=== PATIENT | female | born 1990 | race Caucasian/White ===

== ENCOUNTER → 2016-11-11 | Outpatient (CLI) | payer OTHER ==
[~2016-11-11] MED LIST: ACET50TA PO; COLA100C5 PO; IBUP60TA PO; MOM30SS PO; VALT500T PO
[2016-11-11 13:38] LABS: BASO % 0.3 % (0.0-1.0); EOS # 0.1 10^3/uL (0.0-0.50); IMMATURE GRANULOCYTE % 0.3 % (0-0); LYMPH # 1.4 10^3/uL (1.5-6.5); LYMPH % 23.8 % (24.0-44.0); MEAN CORPUSCULAR HEMOGLOBIN 30.3 pg (27.0-33.0); MEAN CORPUSCULAR HGB CONC 34.2 g/dl (32.0-36.5); MEAN CORPUSCULAR VOLUME 88.6 fl (80.0-96.0); MONO # 0.3 10^3/uL (0.0-0.8); MONO % 5.3 % (0.0-5.0); NEUTROPHILS # 4.1 10^3/uL (1.8-7.7); NEUTROPHILS % 68.3 % (36.0-66.0); PLATELET COUNT, AUTOMATED 275 10^3/uL (150-450); WHITE BLOOD COUNT 6.1 10^3/uL (4.0-10.0)
[2016-11-11 13:41] LABS: ADD MANUAL DIFFER NO; DIFF SLIDE NUMBER 259
[2016-11-12 11:21] LABS: HBsAg Prenatal NEGATIVE (NEGATIVE)
== END ==
LOC: M LAB 13:01
PROVIDERS: ATTEND Obstetrics & Gynecology
DX: Z34.81 Encounter for supervision of other normal pregnancy, first trimester (principal); Z3A.00 Weeks of gestation of pregnancy not specified

== ENCOUNTER → 2017-01-14 | Outpatient (CLI) | payer OTHER ==
--- NOTE | 2017-01-15 08:17 | REP ---
COMPLETE OBSTETRICAL ULTRASOUND: CLINICAL HISTORY: Anatomical evaluation. FINDINGS: Ultrasound examination demonstrates single live intrauterine in breech presentation. motion was identified by technologist. The placenta is noted anteriorly and grade 1 without evidence for placenta previa or abruption. Amniotic fluid volume is normal. Cervix measures 3.4 cm in length and appears closed. Uterine synechia identified. Gestational age by LMP 18 weeks 5 days with estimated date of delivery 06/12/2017. Gestational age by current measurements 18 weeks 2 days with estimated date of delivery 06/15/2017. heart rate 160 beats per minute. BPD 4.0 cm = 18 weeks 2 days HC 15.0 cm = 18 weeks 0 days AC 12.7 cm = 18 weeks 2 days FL 2.6 cm = 18 weeks 0 days HL 2.8 cm = 19 weeks 0 days HC/AC ratio 1.18 Estimated weight 226 grams (27th percentile). Anatomical assessment demonstrates normal cranium, choroid plexus, cavum, cerebellum/posterior fossa, facial features, lungs, four chamber heart/ventricular outflow tract, diaphragm, stomach, cord insertion/three vessel cord, kidneys/bladder and extremities. Suboptimal evaluation of the spine due to positioning. IMPRESSION: 1. Single liver intrauterine in breech presentation demonstrating appropriate interval growth. 2. Limited evaluation of the spine due to positioning. The remainder of the anatomical assessment is normal. 3. Synechia noted along the anterior portion of the uterus. Signed by Garcia Verduzco MD 01/16/2017 07:58 A
== END ==
LOC: M RAD 10:15
PROVIDERS: ATTEND Advanced Practice Midwife
DX: Z34.80 Encounter for supervision of other normal pregnancy, unspecified trimester (principal)

== ENCOUNTER → 2017-03-17 | Outpatient (CLI) | payer OTHER ==
[2017-03-17 12:14] LABS: HEMATOCRIT 35.1 % (36.0-47.0); HEMOGLOBIN 11.7 g/dl (12.0-16.0); MEAN CORPUSCULAR HEMOGLOBIN 29.8 pg (27.0-33.0); MEAN CORPUSCULAR HGB CONC 33.3 g/dl (32.0-36.5); MEAN CORPUSCULAR VOLUME 89.5 fl (80.0-96.0); PLATELET COUNT, AUTOMATED 319 10^3/uL (150-450); RED BLOOD COUNT 3.92 10^6/uL (4.00-5.40); RED CELL DISTRIBUTION WIDTH 12.3 % (11.5-14.5); WHITE BLOOD COUNT 9.5 10^3/uL (4.0-10.0)
[2017-03-17 12:52] LABS: GLUCOSE CHALLENGE TEST 1 HOUR 65 MG/DL (LESS THAN 140)
== END ==
LOC: M RAD 09:47
DX: Z36.9 Encounter for antenatal screening, unspecified (principal); Z3A.27 27 weeks gestation of pregnancy
CPT/HCPCS: 76816

== ENCOUNTER → 2017-05-12 | Outpatient (REF) | payer OTHER | LOC: M LAB REF 12:57 | DX: Z34.83 Encounter for supervision of other normal pregnancy, third trimester (principal); Z3A.00 Weeks of gestation of pregnancy not specified ==

== ENCOUNTER → 2017-07-15 | Outpatient (REF) | payer OTHER | LOC: M LAB REF 10:31 | DX: N30.01 Acute cystitis with hematuria (principal) ==

== ENCOUNTER 2018-01-01 20:45 | Emergency (ER) | payer OTHER ==
[2018-01-01] MEDS: TETRACAINE 0.5% OPHTH SOLN 4ML OS (21:09)
[2018-01-01] MEDS: FLUORESCEIN OPHTH 1 MG STRIP OS (21:09)
== END 2018-01-01 21:24 | disposition home or self-care (01) ==
LOC: M ED 20:45
DX: S05.02XA Injury of conjunctiva and corneal abrasion without foreign body, left eye, initial encounter (principal); Z97.3 Presence of spectacles and contact lenses; X58.XXXA Exposure to other specified factors, initial encounter; Y92.89 Other specified places as the place of occurrence of the external cause; Z79.899 Other long term (current) drug therapy
CPT/HCPCS: 99283

== ENCOUNTER → 2019-10-26 | Outpatient (CLI) | payer OTHER ==
[~2019-10-26] MED LIST changes: -ACET50TA PO; +IBUP-1114 PO; +IBUP600T42 PO; -IBUP60TA PO; +MAPA500T2 PO; +OFLO3OPSO OS; +PRENTAB9 PO
[2019-10-26 17:09] LABS: BASO % 0.4 % (0.0-1.0); EOS # 0.1 10^3/uL (0.0-0.5); EOS % 0.9 % (0.0-3.0); HEMATOCRIT 32.8 % (36.0-47.0); HEMOGLOBIN 11.3 g/dl (12.0-15.5); LYMPH # 1.4 10^3/uL (1.5-5.0); LYMPH % 20.1 % (24.0-44.0); MEAN CORPUSCULAR HEMOGLOBIN 30.6 pg (27.0-33.0); MEAN CORPUSCULAR HGB CONC 34.5 g/dl (32.0-36.5); MEAN CORPUSCULAR VOLUME 88.9 fl (80.0-96.0); MONO # 0.3 10^3/uL (0.0-0.8); MONO % 4.3 % (0.0-5.0); NEUTROPHILS % 73.9 % (36.0-66.0); PLATELET COUNT, AUTOMATED 268 10^3/uL (150-450); RED BLOOD COUNT 3.69 10^6/uL (4.00-5.40); WHITE BLOOD COUNT 6.7 10^3/uL (4.0-10.0)
[2019-10-26 18:14] LABS: APPEARANCE, URINE CLOUDY (CLEAR); BACTERIA, URINE AUTO 1+ (NEGATIVE); BILIRUBIN, URINE AUTO NEGATIVE (NEGATIVE); BLOOD, URINE BLOOD NEGATIVE (NEGATIVE); COLOR, URINE YELLOW (YELLOW); GLUCOSE, URINE (UA) AUTO NEGATIVE (NEGATIVE); KETONE, URINE AUTO NEGATIVE (NEGATIVE); LEUKOCYTE ESTERASE, URINE AUTO TRACE (NEGATIVE); MUCUS, URINE SMALL (NEGATIVE); NITRITE, URINE AUTO NEGATIVE (NEGATIVE); PROTEIN, URINE AUTO NEGATIVE (NEGATIVE); RBC, URINE AUTO 1 /HPF (0-3); SPECIFIC GRAVITY URINE AUTO 1.021 (1.002-1.035); SQUAMOUS EPITHELIAL CELL UR AU 14 /HPF (0-6); UROBILINOGEN, URINE AUTO 0.2 mg/dL (0.0-2.0); WBC, URINE AUTO 4 /HPF (0-3)
[2019-10-26 18:29] LABS: HEPATITIS C VIRUS ABY INDEX 0.2 INDEX (<0.8); HIV 1&2 SCREEN CENTAUR NEGATIVE (NEGATIVE)
[2019-10-26 19:12] LABS: CHLAMYDIA DNA AMPLIFICATION NEGATIVE (NEGATIVE); GC DNA AMPLIFICATION NEGATIVE (NEGATIVE)
== END ==
LOC: M PLALAB 13:16
PROVIDERS: ATTEND Obstetrics & Gynecology
DX: Z36.89 Encounter for other specified antenatal screening (principal)

== ENCOUNTER → 2019-12-02 | Outpatient (CLI) | payer OTHER ==
--- NOTE | 2019-12-02 16:08 | REP ---
INDICATION: ANATOMY COMPARISON: None. TECHNIQUE: Transabdominal obstetrical ultrasound with color Doppler evaluation. FINDINGS: Examination demonstrates a single live intrauterine in variable presentation. motion is identified by technologist. Placenta is noted posterior and grade 1 without evidence for placenta previa or abruption. Uterine synechia cannot be excluded. Amniotic fluid volume is normal. Cervix measures 3.7 cm in length and appears closed.. Gestational age by LMP 19 weeks 0 days with JOHNATHAN 04/27/2020. Gestational age by current measurements 18 weeks 6 days with JOHNATHAN 04/28/2020. FHR equals 161 beats per minute. BPD: 4.1 cm 18 weeks 3 days HC: 15.4 cm 18 weeks 2 days AC: 14.5 cm 19 weeks 6 days FL: 2.9 cm 18 weeks 6 days HL: 2.7 cm 18 weeks 4 days HC/AC: 1.06 Estimated weight 281 grams (60thpercentile). Anatomical assessment demonstrates normal structures including cranium, cavum, cerebellum/posterior fossa, facial features, lungs, ventricular outflow tracts, diaphragm, stomach, cord insertion, kidneys/bladder, spine, and extremities. IMPRESSION: 1. Echogenic focus in the left cardiac ventricle suggests prominent chordae tendineae. 2. Small right choroid plexus cyst 2 mm diameter. 3. Cannot exclude uterine synechiae. 4. Live intrauterine in variable presentation demonstrating appropriate growth. <Electronically signed by Garcia Verduzco > 12/02/19 [id number]
== END ==
LOC: M WHC 13:36
PROVIDERS: ATTEND Advanced Practice Midwife
DX: Z34.82 Encounter for supervision of other normal pregnancy, second trimester (principal)

== ENCOUNTER → 2020-01-02 | Outpatient (REF) | payer OTHER | LOC: M PLALAB 10:24 | PROVIDERS: ATTEND Obstetrics & Gynecology | DX: Z34.02 Encounter for supervision of normal first pregnancy, second trimester (principal); Z53.9 Procedure and treatment not carried out, unspecified reason; Z3A.00 Weeks of gestation of pregnancy not specified ==

== ENCOUNTER → 2020-01-31 | Outpatient (REF) | payer OTHER ==
[2020-01-31 15:52] LABS: HEMATOCRIT 30.6 % (36.0-47.0); HEMOGLOBIN 9.5 g/dl (12.0-15.5); MEAN CORPUSCULAR HEMOGLOBIN 28.2 pg (27.0-33.0); MEAN CORPUSCULAR VOLUME 90.8 fl (80.0-96.0); PLATELET COUNT, AUTOMATED 290 10^3/uL (150-450); RED BLOOD COUNT 3.37 10^6/uL (4.00-5.40); WHITE BLOOD COUNT 8.5 10^3/uL (4.0-10.0)
== END ==
LOC: M PLALAB 11:29
PROVIDERS: ATTEND Obstetrics & Gynecology
DX: Z34.82 Encounter for supervision of other normal pregnancy, second trimester (principal); Z3A.23 23 weeks gestation of pregnancy

== ENCOUNTER → 2020-02-16 | Outpatient (CLI) | payer OTHER ==
--- NOTE | 2020-02-16 09:54 | REP ---
INDICATION: F/U ANATOMY COMPARISON: 12/02/2019 TECHNIQUE: Transabdominal obstetrical ultrasound with color Doppler evaluation. FINDINGS: Examination demonstrates a single live intrauterine in cephalic presentation. motion is identified by technologist. Placenta is noted posterior and grade 2 without evidence for placenta previa or abruption. Amniotic fluid volume is normal. Cervix appears closed.. Gestational age by LMP 29 weeks 6 days with JOHNATHAN 04/27/2020. Gestational age by current measurements 29 weeks 4 days with JOHNATHAN 04/29/2020. FHR equals 139 beats per minute. Estimated weight 1513 grams (46thpercentile). JOSE MANUEL: 15.6 cm (9.0-23.4) Current examination demonstrates normal choroid plexus without evidence for cyst as well as echogenic focus within the left cardiac ventricle likely representing prominent chordae tendineae. Three-vessel cord identified and appears normal. Previously suggested uterine synechiae are not identified on current exam. IMPRESSION: 1. Single live intrauterine in cephalic presentation demonstrating appropriate estimated weight and growth. 2. Previously identified uterine synechia is not visualized on current examination. 3. No evidence for choroid plexus cyst on current examination. 4. Continued evidence for small echogenic focus in the left cardiac ventricle. <Electronically signed by Garcia Verduzco > 02/16/20 [id number]
== END ==
LOC: M WHC 08:35
PROVIDERS: ATTEND Obstetrics & Gynecology
DX: Z34.82 Encounter for supervision of other normal pregnancy, second trimester (principal); Z3A.23 23 weeks gestation of pregnancy

== ENCOUNTER 2020-03-01 18:26 | Emergency (ER) | payer OTHER ==
[~2020-03-01] VITALS: Ht 170.2 cm; Wt 74.9 kg
--- OUTSIDE RECORDS SUMMARY | 2020-03-01 18:32 | CCD ---
Author Author [facility] Organization [facility] Address Unknown Phone Unavailable Support Name Relationship Address Phone SIMONE KUMAR Next Of Kin [address] [place] [address] CHRISTINA'S Next Of Kin [address] [place] [address] [employer] SHOPS Next Of Kin [address] [place] [address] STEWARTS* Next Of Kin [address] [place] [address] ST[place]ARTS Next Of Kin [address] [place] [address] ST Next Of Kin Unknown Unavailable NORMA LOPEZ Next Of Kin [address] [place] [address] Re-disclosure Warning The records that you are about to access may contain information from federally-assisted alcohol or drug abuse programs. If such information is present, then the following federally mandated warning applies: This information has been disclosed to you from records protected by federal confidentiality rules (42 CFR part 2). The federal rules prohibit you from making any further disclosure of this information unless further disclosure is expressly permitted by the written consent of the person to whom it pertains or as otherwise permitted by 42 CFR part 2. A general authorization for the release of medical or other information is NOT sufficient for this purpose. The Federal rules restrict any use of the information to criminally investigate or prosecute any alcohol or drug abuse patient.The records that you are about to access may contain highly sensitive health information, the redisclosure of which is protected by Article 27-F of the [facility] Public Health law. If you continue you may have access to information: Regarding HIV / AIDS; Provided by facilities licensed or operated by the [facility] Office of Mental Health; or Provided by the [facility] Office for People With Developmental Disabilities. If such information is present, then the following [facility] mandated warning applies: This information has been disclosed to you from confidential records which are protected by state law. State law prohibits you from making any further disclosure of this information without the specific written consent of the person to whom it pertains, or as otherwise permitted by law. Any unauthorized further disclosure in violation of state law may result in a fine or fpc sentence or both. A general authorization for the release of medical or other information is NOT sufficient authorization for further disc losure. Family History Family Member Name Family Member Gender Family Member Status Date o f Status Description Data Source(s) Unknown Unknown Problem MED[facility] ([facility]) paternal grandmother and pt mother Encounters Encounter Providers Location Date Indications Data Source(s ) ( ESTOB) [facility] [address] [place] [address] 02/15/2020 12:00:00 AM EST eCW1 (formerly [facility]) ( ESTOB) [facility] Est [address] [place] [address] 01/02/2020 12:00:00 AM EST eCW1 (formerly [facility]) Insurance Providers Payer name Policy type / Coverage type Policy ID Covered libertarian ID Covered libertarian's relationship to mccall Policy Mccall Plan Information [employer] [facility] [facility] [id number] SP [id number] [facility] [facility] [id number] SP [id number] [employer] [facility] O [id number] S [id number] [facility] [id number] SP [id number] [facility] [id number] SP [id number] BCBS Federal Plan Commercial [id number] Self R [id number] MVP Commercial [id number] Self [id number] [facility] [id number] SP 80 [id number] [facility] [id number] SP [id number] [facility] [id number] SP 80 [id number] [facility] [id number] FA2 80 [id number] [facility] O [id number] S 80 [id number] [facility] [id number] SP 80 [id number] [facility] O [id number] S 80 [id number] [facility] [id number] FA2 80 [id number] [facility] [id number] SP [id number] MVP Commercial [id number] Family Dependent [id number] [facility] [id number] SP [id number] [facility] [id number] SP [id number] S [id number] Problems, Conditions, and Diagnoses Code Display Name Description Problem Type Effective Dates Data Source(s) O99.013 [id number] Anemia affecting in third trime ster Problem 02/15/2020 12:00:00 AM EST eCW1 ([facility]) Z34.80 care Supervision of other normal P roblem 12/01/2019 12:00:00 AM EDT eCW1 ([facility]) Social History Code Duration Value Status Description Data Source(s ) Smoking 02/13/2020 12:00:00 AM EST Never Smoker completed Never S moker eCW1 ([facility]) Smoking 01/02/2020 12:00:00 AM EST Never Smoker completed Never S moker eCW1 ([facility]) Vital Signs ID Date Data Source UNK Name Value Range Interpretation Code Description Data Source(s) Diastolic blood pressure 62 mm[Hg] 62 mm[Hg] eCW1 ([facility]) Systolic blood pressure 108 mm[Hg] 108 mm[Hg] e CW1 ([facility]) Body mass index (BMI) [Ratio] 25.529 kg/m2 25.5 29 kg/m2 [facility] ([facility]) Body height 67 [in_i] 67 [in_i] eCW1 ([facility]) Body weight 73.94 kg 73.94 kg [facility] ([facility]) Body weight 163 [lb_av] 163 [lb_av] W1 ([facility]) Diastolic blood pressure 64 mm[Hg] 64 mm[Hg] W1 ([facility]) Systolic blood pressure 104 mm[Hg] 104 mm[Hg] e CW1 ([facility]) Body mass index (BMI) [Ratio] 24.903 kg/m2 24.9 03 kg/m2 [facility] ([facility]) Body height 67 [in_i] 67 [in_i] eCW1 ([facility]) Body weight 159 [lb_av] 159 [lb_av] eCW1 ([facility])
--- OUTSIDE RECORDS SUMMARY | 2020-03-01 18:32 | CCD ---
Author Author [facility] Organization [facility] Address Unknown Phone Unavailable Care Team Providers Care Service Vehicle Operator Name Role Phone Martha Perez Unavailable PROBLEMS Type Condition ICD9-CM Code [id number] Code Onset Dates Condition S tatus SNOMED Code Notes Problem Supervision of other normal Z34.80 Ac tive [id number] Problem Anemia affecting in third trimester O99. 013 Active 80005410 ALLERGIES No Known Allergies ENCOUNTERS from 1992 to 2020-02-18 Encounter Location Date Provider Diagnosis [facility] [address] [place] [id number] Feb, Martha Perez Anemia affecting in third trimester O99.013 ; Other specified diseases and conditions complicating O99.891 ; Shortness of breath R06.02 and 29 weeks gestation of Z3A.29 IMMUNIZATIONS No Information SOCIAL HISTORY Tobacco Use: Social History Observation Description Date Details (start date - stop date) Never Smoker Sex Assigned At : Social History Observation Description Sex Assigned At Unknown Tobacco Use: Question Answer Notes Are you a: never smoker REASON FOR REFERRAL No Information VITAL SIGNS Weight 163 lbs Feb, Weight-kg 73.94 kg Feb, Height 67 in Feb, BMI 25.529 kg/m2 Feb, Blood pressure systolic 108 mm Hg Feb, Blood pressure diastolic 62 mm Hg Feb, MEDICATIONS Medication SIG (Take, Route, Frequency, Duration) Notes Start Da te End Date Status Flintstones Complete 18 MG 1 tablet Orally Once a day Active PROCEDURES No Information RESULTS No Results REASON FOR VISIT 4 WK PN PUSHED BACK IN ORDER TO SEE EUSEBIO MEDICAL (GENERAL) HISTORY Type Description Date Hospitalization History childbirth Goals Section No Information Health Concerns No Information MEDICAL EQUIPMENT No Information MENTAL STATUS No Information FUNCTIONAL STATUS No Information ASSESSMENTS Encounter Date Diagnosis Assessment Notes Treatment Notes Treatm ent Clinical Notes Feb, Anemia affecting in third trimester (I CD-10 - O99.013) Feb, Other specified diseases and conditions complicating (ICD-10 - O99.891) Feb, Shortness of breath (ICD-10 - R06.02) Feb, 29 weeks gestation of (ICD-10 - Z3A.29 ) PLAN OF TREATMENT Next Appt Details 2 Weeks Reason: Provider Name:Martha Maria Isabel Chris, 2020-02-29 11:40:00 AM, [address] [place], [address], Follow Up:2 WeeksPrenatal Insurance Providers Payer Name Payer Address Payer Phone Insured Name Patient Relati onship to Insured Coverage Start Date Coverage End Date [facility] [address] [address] [facility] [phone] KANNAN KUMAR self
--- OUTSIDE RECORDS SUMMARY | 2020-03-01 18:32 | CCD ---
Author Author [facility] Organization [facility] Address Unknown Phone Unavailable Care Team Providers Care Rug Frame Mounter Name Role Phone Gloria Ureña Unavailable PROBLEMS Type Condition ICD9-CM Code TNI19-SN Code Onset Dates Condition S tatus SNOMED Code Notes Problem Supervision of other normal Z34.80 Ac tive [id number] ALLERGIES No Known Allergies ENCOUNTERS from 1992 to 2020-01-17 Encounter Location Date Provider Diagnosis [facility] [address] [place] [id number] Dec, Gloria Ureña Encounter for pregna ncy related examination in second trimester Z34.82 and 23 weeks gestation of Z3A.23 IMMUNIZATIONS No Information SOCIAL HISTORY Tobacco Use: Social History Observation Description Date Details (start date - stop date) Never Smoker Sex Assigned At : Social History Observation Description Sex Assigned At Unknown Tobacco Use: Question Answer Notes Are you a: never smoker REASON FOR REFERRAL No Information VITAL SIGNS Weight 159 lbs Dec, Height 67 in Dec, BMI 24.903 kg/m2 Dec, Blood pressure systolic 104 mm Hg Dec, Blood pressure diastolic 64 mm Hg Dec, MEDICATIONS Medication SIG (Take, Route, Frequency, Duration) Notes Start Da te End Date Status Flintstones Complete 18 MG 1 tablet Orally Once a day Active PROCEDURES No Information RESULTS No Results REASON FOR VISIT 4 WK PN 12/19/19 LMOM OF APPT CHG LS MEDICAL (GENERAL) HISTORY Type Description Date Hospitalization History childbirth Goals Section No Information Health Concerns No Information MEDICAL EQUIPMENT No Information MENTAL STATUS No Information FUNCTIONAL STATUS No Information ASSESSMENTS Encounter Date Diagnosis Assessment Notes Treatment Notes Treatm ent Clinical Notes Dec, Encounter for rela tristan examination in second trimester (ICD-10 - Z34.82) Dec, 23 weeks gestation of (ICD-10 - Z3A.23 ) PLAN OF TREATMENT Treatment Notes Test Name Order Date CBC - Complete Blood Count 2020-01-17 AB SCREEN (INDIRECT VIVI)GEL Antibody Screen 2020-01 Type and Screen (D Rh Antibody Screen) 2020-01-17 Glucose Challenge Test 1 Hour 2020-01-17 WWBC OBS FOLLOW UP OR REPEAT 2020-01-17 Next Appt Details 4 Weeks Reason:PN Provider Name:Martha Perez, 2020-02-15 08:00:00 AM, [address] [place], [address], Follow Up:4 WeeksPN Insurance Providers Payer Name Payer Address Payer Phone Insured Name Patient Relati onship to Insured Coverage Start Date Coverage End Date [facility] [address] [address] [facility] [phone] KANNAN KUMAR self
--- OUTSIDE RECORDS SUMMARY | 2020-03-01 19:42 | CCD ---
Author Author [facility] Organization [facility] Address Unknown Phone Unavailable Support Name Relationship Address Phone SIMONE KUMAR Next Of Kin [address] [place] [address] CHRISTINA'S Next Of Kin [address] [place] [address] [employer]ART[employer] SHOPS Next Of Kin [address] [place] [address] STEWARTS* Next Of Kin [address] [place] [address] [place]ARTS Next Of Kin [address] [place] [address] ST Next Of Kin Unknown Unavailable NORMA LOPEZ Next Of Kin [address] [place] [address] Re-disclosure Warning The records that you are [...] is protected by Article 27-F of the [facility] Public Health law. If you continue you may have access to information: Regarding HIV / AIDS; Provided by facilities licensed or operated by the [facility] Office of Mental Health; or Provided by the [facility] Office for People With Developmental Disabilities. If such information is present, then the following [facility] mandated warning applies: This information has [...] law may result in a fine or fci sentence or both. A general authorization for [...] Date Indications Data Source(s ) ( ESTOB) [facility] [address] [place] [address] 02/15/2020 12:00:00 AM EST eCW1 ([facility]) ( ESTOB) [facility] Est OB [address] [place] [address] 01/02/2020 12:00:00 AM EST eCW1 ([facility]) Insurance Providers Payer name Policy type / Coverage type Policy ID Covered green party ID Covered green party's relationship to mccall Policy Mccall Plan Information [employer] [facility] [facility] [id number] SP [id number] [employer] [facility] [id number] SP [id number] [employer] O [id number] S [id number] [facility] HE [id number] SP [id number] [facility] [id number] SP [id number] BC Federal Plan Commercial [id number] Self [id number] MVP Commercial [id number] Self [id number] [facility] [id number] SP [id number] [facility] [id number] SP 80 [id number] [facility] [id number] SP 80 [id number] [facility] [id number] FA2 80 [id number] [facility] O [id number] S 80 [id number] [facility] [id number] SP 80 [id number] [employer] [facility] O [id number] S 80 [id number] [facility] [id number] FA2 80 [id number] [facility] [id number] SP [id number] MVP Commercial [id number] Family Dependent [id number] [facility] [id number] SP [id number] [facility] [id number] SP [id number] [id number] S [id number] Problems, Conditions, and Diagnoses Code Display Name Description Problem Type Effective Dates Data Source(s) O99.013 [id number] Anemia affecting in third trime ster Problem 02/15/2020 12:00:00 AM EST eCW1 ([facility]) Z34.80 care Supervision of other normal P roblem 12/01/2019 12:00:00 AM EDT eCW1 ([facility]) Social History Code Duration Value Status Description Data Source(s ) Smoking 02/13/2020 12:00:00 AM EST Never Smoker completed Never S moker eCW1 ([facility]) Smoking 01/02/2020 12:00:00 AM EST Never Smoker completed Never S moker eCW1 ([facility]) Vital Signs ID Date Data Source UNK Name Value Range Interpretation Code Description Data Source(s) Diastolic blood pressure 62 mm[Hg] 62 mm[Hg] eCW1 ([facility]) Systolic blood pressure 108 mm[Hg] 108 mm[Hg] e CW1 ([facility]) Body mass index (BMI) [Ratio] 25.529 kg/m2 25.5 29 kg/m2 [facility] ([facility]) Body height 67 [in_i] 67 [in_i] eCW1 ([facility]) Body weight 73.94 kg 73.94 kg [facility] ([facility]) Body weight 163 [lb_av] 163 [lb_av] W1 ([facility]) Diastolic blood pressure 64 mm[Hg] 64 mm[Hg] W1 ([facility]) Systolic blood pressure 104 mm[Hg] 104 mm[Hg] e CW1 ([facility]) Body mass index (BMI) [Ratio] 24.903 kg/m2 24.9 03 kg/m2 [facility] ([facility]) Body height 67 [in_i] 67 [in_i] eCW1 ([facility]) Body weight 159 [lb_av] 159 [lb_av] eCW1 ([facility])
--- NOTE | 2020-03-01 20:17 | REPVR ---
PROCEDURE INFORMATION: Exam: US Duplex Left Lower Extremity Veins, Limited Exam date and time: 03/01/2020 7:19 PM Age: 29 years old Clinical indication: Pain; Leg, lower; Left TECHNIQUE: Imaging protocol: Real-time Duplex ultrasound of the Left Lower Extremity with 2-D floyd scale, color Doppler flow and spectral waveform analysis with image documentation. Limited exam focused on the left lower extremity veins. COMPARISON: No relevant prior studies available. FINDINGS: Left deep veins: Unremarkable. The common femoral, femoral, proximal profunda femoral and popliteal veins are patent without thrombus. Normal Doppler waveforms. Normal compressibility and/or augmentation response. Left superficial veins: There are thrombosed varicose veins in the region of the popliteal fossa. Soft tissues: Unremarkable. IMPRESSION: 1. Negative for deep venous thrombosis. 2. Thrombosed varicose veins in the region of the popliteal fossa. Electronically signed by: Odin Lane On 03/01/2020 20:17:55 PM
[2020-03-01 20:30] VITALS: BP 110/60
== END 2020-03-01 20:46 | disposition home or self-care (01) ==
LOC: M ED 18:26
DX: O22.03 Varicose veins of lower extremity in pregnancy, third trimester (principal); Z3A.32 32 weeks gestation of pregnancy

== ENCOUNTER → 2020-03-28 | Outpatient (REF) | payer OTHER | LOC: M SFHCWAGY 16:43 | PROVIDERS: ATTEND Advanced Practice Midwife | DX: Z3A.35 35 weeks gestation of pregnancy (principal) ==

== ENCOUNTER → 2020-04-23 | Outpatient (CLI) | payer OTHER ==
[~2020-04-23] MED LIST changes: +FERR325T18 PO
== END ==
LOC: M LABSMTC 10:44
PROVIDERS: ATTEND Anesthesiology
DX: Z01.818 Encounter for other preprocedural examination (principal); Z11.52 Encounter for screening for COVID-19

== ENCOUNTER 2020-04-26 07:14 | Inpatient (IN) | payer OTHER ==
[~2020-04-26] VITALS: Ht 170.2 cm; Wt 79.8 kg
[2020-04-26] VITALS (8 sets, daily range): BP systolic 101–114; BP diastolic 51–70
[2020-04-26] MEDS ORDERED: BICITRA 30ML SOLN UDC PO ONE (07:35)
[2020-04-26] MEDS ORDERED: ceFAZolin SOD 2 GM in IV 1 EA IV ONE (07:35)
[2020-04-26] MEDS ORDERED: LR 1,000 ML IV ONE (07:35)
[2020-04-26] MEDS ORDERED: OXYTOCIN INJ 10 UNITS/ML VIAL (J2590) As Ordered ONE ×2 (09:08→10:46)
[2020-04-26] MEDS ORDERED: fentaNYL 100 MCG/2 ML INJECTION (J3010) As Ordered ONE (09:15)
[2020-04-26 09:16] LABS: HEMATOCRIT 34.6 % (36.0-47.0); HEMOGLOBIN 11.5 g/dl (12.0-15.5); MEAN CORPUSCULAR HEMOGLOBIN 28.8 pg (27.0-33.0); MEAN CORPUSCULAR HGB CONC 33.2 g/dl (32.0-36.5); MEAN CORPUSCULAR VOLUME 86.7 fl (80.0-96.0); PLATELET COUNT, AUTOMATED 293 10^3/uL (150-450); RED BLOOD COUNT 3.99 10^6/uL (4.00-5.40); WHITE BLOOD COUNT 8.4 10^3/uL (4.0-10.0)
[2020-04-26] MEDS ORDERED: ONDANSETRON 4MG/2ML VIAL IV PRN ×2 (10:01→11:35)
[2020-04-26] MEDS ORDERED: NALOXONE INJ 0.4MG/1ML VIAL (J2310 PER 1MG) IV PRN ×2 (10:01)
[2020-04-26] MEDS ORDERED: NALBUPHINE HCL 10 MG/ML AMP (J2300) IV PRN (10:01)
[2020-04-26] MEDS ORDERED: diphenhydrAMINE 50MG/ML VIAL (J1200) IV PRN (10:01)
[2020-04-26] MEDS ORDERED: METOCLOPRAMIDE INJ 10MG/2ML VIAL (J2765 PER 1) IV PRN (10:01)
[2020-04-26] MEDS ORDERED: OXYTOCIN DRIP 30 UNITS in IV 1 EA IV SCH (10:08)
[2020-04-26] MEDS ORDERED: PHENYLephrine 500MCG 5ML (100MCG/ML) SYRINGE As Ordered ONE (10:09)
[2020-04-26] MEDS ORDERED: ePHEDrine SULFATE 25 MG/5 ML(5MG/ML) SYRINGE As Ordered ONE (10:09)
[2020-04-26] MEDS ORDERED: PERCOCET 5MG/325MG TAB PO PRN ×2 (10:10)
[2020-04-26] MEDS ORDERED: SIMETHICONE 80MG CHEW TAB PO PRN (10:10)
[2020-04-26] MEDS ORDERED: MOM 30ML SUSPENSION UDC PO PRN (10:10)
[2020-04-26] MEDS ORDERED: MEASLES,MUMPS,RUBELLA VACCINE INJ (MMR-II) (90707) SC SCH (10:10)
[2020-04-26] MEDS ORDERED: RHOGAM 300 MCG (1500 IU) INJ (J2790) IM SCH (10:10)
[2020-04-26] MEDS ORDERED: ONDANSETRON 4MG/2ML VIAL As Ordered ONE (10:24)
[2020-04-26] MEDS ORDERED: dexameTHASONE 4 MG/ML 1ML VIAL (J1100 PER 1MG) As Ordered ONE (10:24)
[2020-04-26] MEDS ORDERED: MORPHINE PRES-FREE INJ 10 MG/10 ML VIAL (J2274) As Ordered ONE (10:32)
[2020-04-26] MEDS ORDERED: KETOROLAC 60MG 2ML VIAL As Ordered ONE (10:37)
[2020-04-26] MEDS ORDERED: oxyCODONE 5MG TAB PO PRN (11:35)
[2020-04-26] MEDS ORDERED: fentaNYL 100 MCG/2 ML INJECTION (J3010) IV PRN (11:35)
[2020-04-26] MEDS ORDERED: OXYTOCIN 30 UNITS IN 0.9% NaCl 500ML IV BAG (J2590) As Ordered ONE (11:52)
[2020-04-26] MEDS: PRENATAL VITAMINS CHEWABLE TABLET PO SCH (13:27)
[2020-04-26] MEDS: DOCUSATE SODIUM 100MG CAPSULE PO SCH ×2 (13:27→20:55)
[2020-04-26] MEDS: LR 1,000 ML IV SCH ×2 (16:01→18:08)
--- NOTE | 2020-04-26 16:46 | ROOPDOC ---
[facility] Report Of Operation Report of Operation DATE OF PROCEDURE: 04/26/20 SURGEON: Gloria Ureña M.D. REIMBURSEMENT AUDITOR: Mariusz Jalloh M.D. ( essential for tissue retractions, exposure and delivery of ) PROCEDURE: Primary section with bilateral salpingectomies PREOPERATIVE DIAGNOSIS: 1. Recurrent herpes simplex virus outbreak 2.Satisfied parity with undesired fertility POSTOPERATIVE DIAGNOSIS: 1.Recurrent herpes simplex virus outbreak 2. Satisfied parity with undesired fertility ANESTHESIA: Spinal ESTIMATED BLOOD LOSS: 500 mL URINE OUTPUT: 150 mL INTRAVENOUS FLUIDS: 700 mL of lactated Ringer's solution PREOPERATIVE ANTIBIOTICS:. 2 g of Ancef OPERATIVE FINDINGS: Liveborn female infant, Apgars 9 and 9. Weight 3290 g or 7 lbs. 4 oz. SPECIMENS: Bilateral fallopian tubes DESCRIPTION OF PROCEDURE: After informed consent was obtained and written consent was reviewed. The patient was brought to the operating room where spinal anesthesia was placed. She was then placed in the supine position with a left lateral tilt. Russell catheter was placed and to gravity. Patient was then prepped and draped in the normal sterile fashion. A timeout operating room was performed identifying the patient, procedure be performed as well as drug allergies. Anesthesia was tested and deemed to be adequate. Pfannenstiel skin incision was made and this was carried down to the underlying rectus fascia. The fascia was then scored and this incision was extended bilaterally. The fascia was then dissected off the underlying rectus muscle superiorly and inferiorly. The rectus muscles were then in the midline. The peritoneum is then entered. Vesicouterine peritoneum was then tented and excised and a bladder flap was created. Mobius retractor was then placed. Next, a curvilinear incision was then made in the lower uterine segment. Amniotomy was performed, productive, clear fluid. The head was brought to the level of the incision atraumatically and delivered along the shoulders and corpus. The cord was clamped x2. The infant was brought over to the warmer with a good cry. Placenta was drained and delivered grossly intact. The uterus was cleared of all clots and debris and the uterine incision was then closed using 0 Vicryl in a running locking fashion followed. Attention was then turned to a bilateral salpingectomies. A window was created in the mesosalpinx bilaterally and was cauterized and ligated with 3-0 vicryl with good hemostasis noted. The abdomen suctioned. Surgical sites reinspected and noted be hemostatic. The retractor was then removed. The anterior peritoneum was then reapproximated with 3-0 Vicryl. The rectus muscles were reapproximated 3-0 Vicryl. The fascia was then closed using 0 Vicryl in a running nonlocking fashion. The subcutaneous tissues was then irrigated and suctioned. Subcutaneous tissue was reapproximated using 3-0 Vicryl. Several subdermal stitch is placed using 3-0 Vicryl and the skin was closed with 4-0 Monocryl and subcuticular fashion. This incision was then cleaned and dried and was dressed. The patient was then taken to recovery in stable condition. All counts were correct. My surgical services asst Mariusz Jalloh M.D. played in an essential role during the operation. He assisted with tissue identification retraction, delivery of the , as well as wound closure. GLORIA UREÑA MD. Apr 26, 2020 16:46
[2020-04-26] MEDS: KETOROLAC 30 MG/ML 1ML VIAL IV SCH ×2 (17:10→23:00)
[2020-04-27 02:00] VITALS: BP 98/54
[2020-04-27] MEDS: LR 1,000 ML IV SCH (02:08)
[2020-04-27] MEDS: KETOROLAC 30 MG/ML 1ML VIAL IV SCH (05:15)
[2020-04-27 06:00] VITALS: BP 99/53
[2020-04-27 07:31] LABS: HEMATOCRIT 25.6 % (36.0-47.0); MEAN CORPUSCULAR HEMOGLOBIN 28.5 pg (27.0-33.0); MEAN CORPUSCULAR HGB CONC 32.8 g/dl (32.0-36.5); MEAN CORPUSCULAR VOLUME 86.8 fl (80.0-96.0); PLATELET COUNT, AUTOMATED 237 10^3/uL (150-450); RED BLOOD COUNT 2.95 10^6/uL (4.00-5.40); WHITE BLOOD COUNT 12.2 10^3/uL (4.0-10.0)
[2020-04-27 07:43] LABS: HEMOGLOBIN 8.4 g/dl (12.0-15.5)
[2020-04-27] MEDS: DOCUSATE SODIUM 100MG CAPSULE PO SCH ×2 (08:06→20:41)
[2020-04-27] MEDS: PRENATAL VITAMINS CHEWABLE TABLET PO SCH (08:06)
[2020-04-27 10:00] VITALS: BP 114/59
[2020-04-27] MEDS: IBUPROFEN 800 MG TAB PO SCH ×2 (12:17→20:42)
[2020-04-27 13:47] VITALS: BP 121/78
[2020-04-27] MEDS ORDERED: PERCOCET PO (15:55)
[2020-04-27] MEDS ORDERED: IBUP80TA PO (15:55)
[2020-04-27 18:00] VITALS: BP 121/73
[2020-04-27 22:00] VITALS: BP 101/64
[2020-04-28 02:00] VITALS: BP 100/57
[2020-04-28] MEDS: IBUPROFEN 800 MG TAB PO SCH (05:29)
[2020-04-28 06:00] VITALS: BP 96/63
[2020-04-28] MEDS: PRENATAL VITAMINS CHEWABLE TABLET PO SCH (07:14)
[2020-04-28] MEDS: DOCUSATE SODIUM 100MG CAPSULE PO SCH (07:14)
--- NOTE | 2020-04-28 09:18 | DS.PDOC ---
Discharge Summary General Date of Admission Apr 26, 2020 at 07:14 Date of Discharge 04/28/20 Attending Physician: YURIDIA MEDINA MD. Discharge Summary PROCEDURES PERFORMED DURING STAY: Primary section with bilateral salpingectomy ADMITTING DIAGNOSES: 1. IUP at 39+ weeks gestation with genital herpes outbreak. 2. Satisfied parity DISCHARGE DIAGNOSES: 1. Day 2 postoperative. COMPLICATIONS/CHIEF COMPLAINT: Primary C/S. HISTORY OF PRESENT ILLNESS: Eva is now a at 39+ weeks gestation who has a current genital herpes outbreak. For this reason she had a primary section to decrease risk to . She also desired a tubal ligation for satisfied parity. She had a living female with an uncomplicated section. She reports she is doing well. Ambulating, voiding and eating a regular diet. HOSPITAL COURSE: uncomplicated. . DISCHARGE MEDICATIONS: Please see below. ALLERGIES: Please see below. PHYSICAL EXAMINATION ON DISCHARGE: VITAL SIGNS: Please see below. GENERAL: Alert and oriented. Sitting up in bed. No apparent distress. RESPIRATORY EXAMINATION: regular rate and rhythm without use of accessory muscles ABDOMINAL EXAMINATION: dressing intact. No erythema around dressing. EXTREMITIES: generalized edema SKIN: warm and dry. LABORATORY DATA: Please see below. ACTIVITY: As tolerated. DIET: regular DISCHARGE INSTRUCTIONS: 1. Discharged to home with precautions. 2. Incision check in the office scheduled for 2 weeks and already scheduled. 3. Dressing to be removed on day 5 postoperative 4. Patient to call office with any concerns or changes. DISCHARGE CONDITION: Stable. Vital Signs/I&Os Vital Signs Date Time Temp Pulse Resp B/P (MAP) Pulse Ox O2 Delivery O2 Flow Rate FiO2 04/28/20 06:00 97.7 70 16 96/63 (74) 99 Room Air I&O- Last 24 Hours up to 6 AM 04/28/20 06:00 Output Total 700 ml Balance -700 ml Laboratory Data CBC/BMP Item Value Date Time White Blood Count 12.2 10^3/uL H 04/27/20 0716 Red Blood Count 2.95 10^6/uL L 04/27/20 0716 Hemoglobin 8.4 g/dl L # 04/27/20 0716 Hematocrit 25.6 % L 04/27/20 0716 Mean Corpuscular Volume 86.8 fl 04/27/20 0716 Mean Corpuscular Hemoglobin 28.5 pg 04/27/20 0716 Mean Corpuscular Hemoglobin Concent 32.8 g/dl 04/27/20 0716 Red Cell Distribution Width 12.9 % 04/27/20 0716 Platelet Count 237 10^3/uL 04/27/20 0716 Discharge Medications Scheduled Ferrous Sulfate (Ferrous Sulfate) 325 Mg Tablet, 65 MG PO DAILY, (Reported) Ibuprofen (Ibuprofen) 800 Mg Tablet, 800 MG PO Q8H Valacyclovir HCl (Valtrex) 500 Mg Tablet, 500 MG PO BID, (Reported) Scheduled PRN Oxycodone/Acetaminophen (Oxycodone-Acetaminophen 5-325) 1 Each Tablet, 1-2 TAB PO Q6H PRN for PAIN Allergies Coded Allergies: No Known Allergies (Unverified , 04/24/20) HARMONY MOSQUEDA CNM Apr 28, 2020 09:18
== END 2020-04-28 12:15 | disposition home or self-care (01) | DRG 540 ==
LOC: M LDI 07:14 → M OBS 12:30
PROVIDERS: ADMIT Obstetrics & Gynecology; ATTEND Obstetrics & Gynecology
PROC: 0UB70ZZ Excision of Bilateral Fallopian Tubes, Open Approach (ICD-10-PCS; 2020-04-26)
PROC: 10D00Z1 Extraction of Products of Conception, Low, Open Approach (ICD-10-PCS; principal; 2020-04-26 09:30)
DX: O98.52 Other viral diseases complicating childbirth (principal); B00.9 Herpesviral infection, unspecified; Z3A.39 39 weeks gestation of pregnancy; Z37.0 Single live birth; Z79.899 Other long term (current) drug therapy; Z30.2 Encounter for sterilization

== ENCOUNTER → 2020-06-22 | Outpatient (REF) | payer OTHER ==
[~2020-06-22] MED LIST changes: +IBUP80TA PO; +PERCOCET PO
[2020-06-22 17:16] LABS: BASO % 0.5 % (0.0-1.0); EOS # 0.2 10^3/uL (0.0-0.5); EOS % 2.8 % (0.0-3.0); HEMATOCRIT 36.2 % (36.0-47.0); HEMOGLOBIN 11.5 g/dl (12.0-15.5); LYMPH # 1.8 10^3/uL (1.5-5.0); LYMPH % 30.4 % (24.0-44.0); MEAN CORPUSCULAR HEMOGLOBIN 28.5 pg (27.0-33.0); MEAN CORPUSCULAR HGB CONC 31.8 g/dl (32.0-36.5); MEAN CORPUSCULAR VOLUME 89.6 fl (80.0-96.0); MONO # 0.4 10^3/uL (0.0-0.8); MONO % 6.9 % (2.0-8.0); NEUTROPHILS # 3.6 10^3/uL (1.5-8.5); NEUTROPHILS % 59.1 % (36.0-66.0); PLATELET COUNT, AUTOMATED 365 10^3/uL (150-450); RED BLOOD COUNT 4.04 10^6/uL (4.00-5.40); WHITE BLOOD COUNT 6.1 10^3/uL (4.0-10.0)
[2020-06-22 17:43] LABS: ALBUMIN 3.6 GM/DL (3.2-5.2); ALT/SGPT 17 U/L (12-78); BILIRUBIN,TOTAL 0.3 MG/DL (0.2-1.0); BLOOD UREA NITROGEN 16 MG/DL (7-18); CALCIUM LEVEL 9.1 MG/DL (8.5-10.1); CARBON DIOXIDE LEVEL 33 MEQ/L (21-32); CHLORIDE LEVEL 107 MEQ/L (98-107); CREATININE FOR GFR 0.75 MG/DL (0.55-1.30); FREE T4 0.85 NG/DL (0.76-1.46); GLOMERULAR FILTRATION RATE > 60.0 (>60); GLUCOSE, FASTING 58 MG/DL (70-100); IRON (FE) 65 UG/DL (50-170); POTASSIUM SERUM 4.8 MEQ/L (3.5-5.1); SODIUM LEVEL 142 MEQ/L (136-145); TOTAL IRON BINDING CAPACITY 343 UG/DL (250-450); TOTAL PROTEIN 6.9 GM/DL (6.4-8.2)
[2020-06-22 17:45] LABS: VITAMIN B12 LEVEL 599 PG/ML
[2020-06-22 17:46] LABS: FOLATE 10.8 NG/ML
== END ==
LOC: M SFHCADAM 14:48
PROVIDERS: ATTEND Physician Assistant
DX: R42 Dizziness and giddiness (principal); D50.8 Other iron deficiency anemias

== ENCOUNTER → 2021-10-29 | Outpatient (REF) | payer OTHER ==
[2021-10-29 16:48] LABS: APPEARANCE, URINE MANUAL CLEAR (CLEAR); COLOR, URINE MANUAL YELLOW (YELLOW); PH,URINE MAN 7.5 UNITS (5.0 - 7.0); SPECIFIC GRAVITY,URINE MANUAL 1.015 (1.002-1.035)
[2021-10-29 17:10] LABS: BILIRUBIN, URINE MANUAL NEGATIVE (NEGATIVE); BLOOD URINE MANUAL TRACE (NEGATIVE); GLUCOSE, URINE (UA) MANUAL NEGATIVE (NEGATIVE); KETONE, URINE MANUAL NEGATIVE (NEGATIVE); LEUKOCYTE ESTERASE, URINE MAN TRACE (NEGATIVE); NITRITE, URINE MANUAL NEGATIVE (NEGATIVE); PROTEIN, URINE MANUAL NEGATIVE (NEGATIVE); UROBILINOGEN, URINE MANUAL NORMAL (NORMAL)
[2021-10-29 17:11] LABS: SQUAMOUS EPITHELIAL CELL URINE LARGE AMOUNT /hpf (SMALL AMT)
[2021-10-29 17:12] LABS: BACTERIA, URINE LARGE AMOUNT; HYALINE CAST, URINE NONE SEEN /lpf (0-1); MUCUS, URINE SMALL AMOUNT (NEGATIVE)
== END ==
LOC: M LAB REF 16:26
PROVIDERS: ATTEND Physician Assistant Medical
DX: N39.0 Urinary tract infection, site not specified (principal)

== ENCOUNTER 2023-03-18 20:50 | Emergency (ER) | payer OTHER ==
[~2023-03-18] VITALS: Ht 170.2 cm; Wt 65.3 kg
[~2023-03-18 20:50] MED LIST changes: -OFLO3OPSO OS; +OFLO5DRO OS
[2023-03-18 20:51] VITALS: BP 107/72; TEMP 98.3; O2SAT 99
[2023-03-18 22:03] LABS: BASO % 0.6 % (0.0-1.0); EOS # 0.1 10^3/uL (0.0-0.5); EOS % 1.7 % (0.0-3.0); HEMATOCRIT 32.7 % (36.0-47.0); HEMOGLOBIN 10.7 g/dl (12.0-15.5); LYMPH % 30.8 % (24.0-44.0); MEAN CORPUSCULAR HEMOGLOBIN 27.7 pg (27.0-33.0); MEAN CORPUSCULAR HGB CONC 32.7 g/dl (32.0-36.5); MEAN CORPUSCULAR VOLUME 84.7 fl (80.0-96.0); MONO # 0.5 10^3/uL (0.0-0.8); NEUTROPHILS # 3.8 10^3/uL (1.5-8.5); NEUTROPHILS % 59.7 % (36.0-66.0); PLATELET COUNT, AUTOMATED 328 10^3/uL (150-450); RED BLOOD COUNT 3.86 10^6/uL (4.00-5.40); WHITE BLOOD COUNT 6.4 10^3/uL (4.0-10.0)
[2023-03-18 22:25] LABS: LIPASE 28 U/L (12-53)
[2023-03-18 22:27] LABS: ALBUMIN 3.6 G/DL (3.2-5.2); ALKALINE PHOSPHATASE 58 U/L (46-116); ALT/SGPT 13 U/L (7.0-40); AST/SGOT 13 U/L (<34); BILIRUBIN,DIRECT 0.1 MG/DL (<0.4); BILIRUBIN,TOTAL 0.3 MG/DL (0.3-1.2); BLOOD UREA NITROGEN 15 MG/DL (9-23); CALCIUM LEVEL 8.4 MG/DL (8.5-10.1); CARBON DIOXIDE LEVEL 27 MMOL/L (20-31); CHLORIDE LEVEL 108 MMOL/L (98-107); CREATININE FOR GFR 0.64 MG/DL (0.55-1.30); GLOMERULAR FILTRATION RATE > 60.0 (>60); GLUCOSE, FASTING 114 MG/DL (60-100); POTASSIUM SERUM 3.9 MMOL/L (3.5-5.1); SODIUM LEVEL 140 MMOL/L (136-145); TOTAL PROTEIN 6.7 G/DL (5.7-8.2)
[2023-03-18 22:29] LABS: HCG, SERUM QUALITATIVE NEGATIVE (NEGATIVE)
== END 2023-03-19 02:20 | disposition left against medical advice (07) ==
LOC: M ED 20:50
DX: Z53.21 Procedure and treatment not carried out due to patient leaving prior to being seen by health care provider (principal)

== ENCOUNTER → 2023-03-20 | Outpatient (CLI) | payer BC, OTHER | LOC: M RAD 08:00 | PROVIDERS: ATTEND Student in an Organized Health Care Education/Training Program | DX: R10.11 Right upper quadrant pain (principal) ==

== ENCOUNTER 2023-05-28 21:01 | Emergency (ER) | payer OTHER ==
[~2023-05-28] VITALS: Ht 170.2 cm; Wt 65.0 kg
[2023-05-28 21:35] LABS: BASO % 0.2 % (0.0-1.0); EOS % 0.4 % (0.0-3.0); HEMATOCRIT 31.4 % (36.0-47.0); LYMPH # 0.9 10^3/uL (1.5-5.0); LYMPH % 17.9 % (24.0-44.0); MEAN CORPUSCULAR HEMOGLOBIN 27.5 pg (27.0-33.0); MEAN CORPUSCULAR HGB CONC 31.8 g/dl (32.0-36.5); MEAN CORPUSCULAR VOLUME 86.5 fl (80.0-96.0); MONO # 0.3 10^3/uL (0.0-0.8); MONO % 5.3 % (2.0-8.0); NEUTROPHILS # 3.7 10^3/uL (1.5-8.5); NEUTROPHILS % 75.8 % (36.0-66.0); PLATELET COUNT, AUTOMATED 299 10^3/uL (150-450); RED BLOOD COUNT 3.63 10^6/uL (4.00-5.40); WHITE BLOOD COUNT 4.9 10^3/uL (4.0-10.0)
[2023-05-28 21:50] LABS: INR 1.21; PARTIAL THROMBOPLASTIN TIME 25.8 SECONDS (24.8-34.2); PROTHROMBIN TIME 14.9 SECONDS (12.5-14.5)
[2023-05-28] MEDS: NS 1,000 ML IV ONE (21:52)
[2023-05-28 21:53] LABS: CK-MB VALUE MASS < 1.0 NG/ML (<3.6)
[2023-05-28 21:55] LABS: BLOOD UREA NITROGEN 15 MG/DL (9-23); CALCIUM LEVEL 7.8 MG/DL (8.5-10.1); CARBON DIOXIDE LEVEL 28 MMOL/L (20-31); CHLORIDE LEVEL 108 MMOL/L (98-107); CPK CREATINE PHOSPHOKINASE 46 U/L (34-145); CREATININE FOR GFR 0.72 MG/DL (0.55-1.30); GLOMERULAR FILTRATION RATE > 60.0 (>60); GLUCOSE, FASTING 148 MG/DL (60-100); MAGNESIUM LEVEL 1.7 MG/DL (1.8-2.4); MB/CK RELATIVE INDEX 2.17 (< OR =4); POTASSIUM SERUM 3.4 MMOL/L (3.5-5.1); SODIUM LEVEL 141 MMOL/L (136-145)
[2023-05-28 21:57] LABS: FREE T4 0.89 NG/DL (0.89-1.76)
[2023-05-28 21:58] LABS: THYROID STIMULATING HORMONE 1.086 uIU/ML (0.55-4.78)
[2023-05-28 22:06] LABS: HCG, SERUM QUALITATIVE NEGATIVE (NEGATIVE)
[2023-05-28] MEDS: POTASSIUM CHLORIDE 10MEQ SR TABLET PO ONE (22:43)
[2023-05-28] MEDS: MAGNESIUM OXIDE 400MG TAB (MAG-OX) PO ONE (22:43)
[2023-05-28 23:24] LABS: CK-MB VALUE MASS < 1.0 NG/ML (<3.6)
[2023-05-28 23:26] LABS: CPK CREATINE PHOSPHOKINASE 39 U/L (34-145); MB/CK RELATIVE INDEX 2.56 (< OR =4)
[2023-05-29 00:15] VITALS: BP 90/59
[2023-05-29 00:16] VITALS: TEMP 97.7; O2SAT 97
== END 2023-05-29 00:29 | disposition home or self-care (01) ==
LOC: M ED 21:01
DX: R55 Syncope and collapse (principal); R94.31 Abnormal electrocardiogram [ECG] [EKG]